=== PATIENT | female | born 1955 | race Caucasian/White ===

== ENCOUNTER 2018-09-20 13:47 | Inpatient (IN) ==
[2018-09-20] MEDS ORDERED: ZOFRAN IV PRN (17:06)
[2018-09-20] MEDS ORDERED: TYLENOL PO PRN (17:06)
[2018-09-20] MEDS ORDERED: SALINE LOCK IV FLUID XX ONE (17:06)
[2018-09-20] MEDS ORDERED: TYLENOL PR PRN (17:09)
[2018-09-20] MEDS ORDERED: DILAUDID IV PRN (17:09)
[2018-09-20] MEDS ORDERED: DULCOLAX PR ONE (17:37)
[2018-09-20] MEDS ORDERED: NS 1,000 ML IV SCH (17:45)
[2018-09-20 17:52] LABS: BASO# 0.03 X1000 (0.0-0.2); BASO% 0.4 % (0.0-0.8); EOS% 2.8 % (0.0-10.0); HEMATOCRIT 37.6 % (37.0-47.0); HEMOGLOBIN 12.2 g/dL (12.0-16.0); IMM GRAN# 0.03 X1000 (0.0-0.04); IMM GRAN% 0.4 % (0.0-0.5); LYMPH# 1.68 X1000 (1.2-3.4); LYMPH% 23.7 % (20.5-51.1); MCH 29.5 PG (27-31); MCHC 32.4 g/dL (33-37); MCV 90.8 FL (81-99); MONO# 0.75 X1000 (0.11-0.59); MONO% 10.6 % (1.7-9.3); MPV 9.7 FL (7.4-10.4); NEUT% 62.1 % (42.2-75.2); PLT 262 X1000 (130-400); RBC 4.14 XMIL (4.2-5.4); RDW 15.5 % (11.5-14.5); WBC 7.09 X1000 (4.8-10.8)
[2018-09-20 18:02] LABS: AGAP 12; BUN 16 mg/dL (8-22); CALCIUM 8.7 mg/dL (8.8-10.2); CHLORIDE 103 mmol/L (98-107); COSMO 282; CREATININE 0.7 mg/dL (0.5-0.9); ESTIMATED GFR > 60; GLUCOSE 96 mg/dL (70-104); POTASSIUM 3.6 mmol/L (3.5-5.1); SODIUM 141 mmol/L (136-145); TCO2 26 mmol/L (25-35); TOTAL BILIRUBIN 0.16 mg/dL (0.20-1.00)
[2018-09-20 18:03] LABS: ALB/GLOB RATIO 1.1; ALBUMIN 3.7 g/dL (3.5-5.0); ALKALINE PHOSPHATASE 94 U/L (32-104); AMYLASE 29 U/L (20-200); GOT 33 U/L (10-30); GPT 17 U/L (10-36); LIPASE 24 U/L (13-60); TOTAL PROTEIN 7.1 g/dL (6.3-8.3)
--- NOTE | 2018-09-20 18:09 | HISTORY AND PHYSICAL ---
CHIEF COMPLAINT: Abdominal pain, bloating, and nausea and vomiting. HISTORY OF PRESENT ILLNESS: The patient is a 62-year-old white female, followed in my medical practice. She is also followed by Dr. Agusto Davila, oncologist, and at [facility] as well. 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 She comes in with a 10-day history of illness of lower abdominal pain. The pain is peristaltic in nature, lasting 3 to 4 minutes with severe pains occurring primarily after eating meals. She has not been able to eat much due to this fact and had nausea and vomiting x2 in the past 4 days. She has not been able to pass gas this morning, but last bowel movement was this morning, and she has normally been going daily, somewhat loose bowel movements at times. She denies fever. MEDICATIONS: Her medications prior to admission are Neurontin 100 mg p.o. every night at bedtime, rare Restoril at night for sleep. ALLERGIES: To morphine. PAST MEDICAL HISTORY: 1. Hypertension diagnosed in 2003, now diet controlled. 2. History of right breast cancer diagnosed May 2017. 3. History of right pleural effusions related to her cancer and had PleurX catheters bilaterally in the past. 4. History of osteoarthritis. 5. 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 6. Mild anemia. 7. History of ruptured appendix with drainage with drain placed. PAST SURGICAL HISTORY: 1. PARISH-BSO on 07/22/2004. 2. Right TKR in April 2015. 3. Left TKR in January 2016. 4. Right appendectomy and drain placement. FAMILY HISTORY: Notable for breast cancer in aunt, mother, 2 sisters. Hypertension in her mother and grandfather. Stroke in her grandfather. No diabetes or MIs in the family. SOCIAL HISTORY: Patient lives in [place]. She is and has 2 sons. 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 Never been a smoker. Does not drink alcohol. REVIEW OF SYSTEMS: Notable for failed medications at [facility] and here at [facility] per Dr. Davila. HER2 positive for FISH. Review of systems otherwise negative except as above. PHYSICAL EXAMINATION: VITAL SIGNS: Weight 150, which is down 3 pounds in the last 3 months. Height 5 feet 7 inches. Blood pressure 136/98, pulse 96, BMI 25. GENERAL: A thin, white female, not particularly ill-appearing. SKIN: Warm and dry. No rashes. HEENT: NC/AT. RALPH. EOMI. Sclerae anicteric. Oropharynx, no redness. Tongue in the midline. NECK: No LA, thyromegaly, JVD or bruits. CARDIOVASCULAR: RRR without murmur. LUNGS: Diminished breath sounds right lung field prominent, left lung clear. BACK: Nontender to palpation. ABDOMEN: Mild distention. Fairly soft. Inactive bowel sounds. No mass or organomegaly. No rebound or guarding. Mild tenderness diffusely across the low abdomen. BREASTS/PELVIC/RECTAL: Deferred. EXTREMITIES: No calf tenderness, cords, or edema. NEUROLOGIC: Cranial nerves 2 through 12 are intact, nonfocal. DIAGNOSTIC DATA: KUB done through the office revealed small bowel obstruction. ASSESSMENT: 1. Small bowel obstruction. 2. Metastatic invasive mammary carcinoma, BRCA gene positive and HER2 positive. 3. Hypertension, diet controlled. 4. History of squamous cell carcinoma, left shoulder, status post removal. 5. Anemia. 6. Peripheral neuropathy, thought related to chemotherapy. 7. History of abdominal surgeries related to ruptured appendix, done at [facility]. PLAN: We will admit the patient, give her IV fluids, and keep her n.p.o. except for medications which will include Neurontin and Restoril. We will give her Dilaudid if needed for pain control. We will hold off on NG tube placement at her request at this point. We will try Dulcolax suppositories and Zofran for nausea. Await CT of abdomen and pelvis without contrast. cc: Kirk Rush MD
--- NOTE | 2018-09-20 18:50 | Diag Imaging Result Doc PS360 ---
CT ABDOMEN/PELVIS W/O CONTRAST - 09/20/2018 INDICATION: sbo/breast ca wth mets COMPARISON: 06/04/2017 FINDINGS: There are some minimal infiltrate in the left lower lobe. There is significant pleural thickening throughout the right lung base. There is significant consolidation of the right lung base as well involving the middle and lower lobes. No significant mediastinal shift. Heart size is normal with no pericardial effusion. The gallbladder is collapsed. Otherwise all abdominal organs are normal. There is significant dilation of much of the small bowel with gas and fluid. His measures up to about 3.5 cm in caliber. There is architectural distortion of several bowel loops in the pelvis. There may be a soft tissue density mass at the right pelvic sidewall, versus just some collapsed bowel loops. The colon is very collapsed. Rectum is grossly normal. Urinary bladder is normal. Uterus is absent. Bones are osteopenic. No acute or suspicious bony lesions. IMPRESSION: 1. Indeterminate density at the right pelvic sidewall which may represent a pelvic mass. This is likely responsible for the high-grade small bowel obstruction. 2. Significant pleural thickening at the right lung base. Significant persistent consolidation of the right lung base. 3. Minimal ill-defined infiltrate in the left lower lobe. This exam was performed using automated exposure control, adjustment of mA or kV according to patient size, and/or use of iterative reconstruction technique Electronically signed by Colby Irby 09/20/2018 6:47 PM
[2018-09-20] MEDS: NEURONTIN PO SCH (22:34)
[2018-09-21] MEDS ORDERED: DULCOLAX PR ONE (08:48)
[2018-09-21] MEDS: NS + KCL 20 MEQ 1,000 ML IV SCH ×2 (11:16→23:12)
--- NOTE | 2018-09-21 18:07 | PROGRESS NOTE ---
DATE: 09/21/2018 SUBJECTIVE: Patient is stable overall. No major nausea. No vomiting. She has still not had a significant bowel movement after 2 Dulcolax suppositories. OBJECTIVE: Vital signs: Afebrile, pulse 79, respirations 14, blood pressure 137/85, O2 saturation on room air 94 to 98%. CV: RRR. Lungs: Diminished breath sounds prominently on the right, minimally decreased at the left lung base. Abdomen: Soft. Hypoactive bowel sounds. Mild tenderness diffusely across the low abdomen. No mass appreciated on exam. Extremities: No calf tenderness, cords, or edema. Neurologic: Cranial nerves 2-12 are intact. Nonfocal. LABORATORY: White count 7.09, hemoglobin 12.2, platelets 262,000. CMP shows normal labs to include potassium of 3.6, BUN 16, creatinine 0.7, calcium 8.7, total bilirubin 0.16, AST 33, ALT 17, alkaline phosphatase 94, albumin 3.7, amylase 29, lipase 24. CT abdomen and pelvis without contrast reveals indeterminate density in the right pelvic sidewall, possibly representing a pelvic mass. This is likely responsible for the high-grade SBO. Significant pleural thickening at the right lung base with persistent consolidation of the right lung base. Minimal ill-defined infiltrate left lower lobe. ASSESSMENT: 1. High-grade small bowel obstruction. 2. Right pelvic mass with history of appendiceal abscess in the past year or so, treated with CT- guided aspiration and drain placement. 3. Metastatic right breast cancer with chronic malignant right pleural effusion. PLAN: We have asked Dr. Regis Ortiz to see the patient in consultation from a surgical standpoint. He has placed her port in the past and the PleurX catheters. Continue IV fluids. cc: Kirk Rush MD
[2018-09-21] MEDS: NEURONTIN PO SCH (20:04)
--- NOTE | 2018-09-21 21:31 | GENERAL SURGERY CONSULTATION ---
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 She is BRCA positive. She has been undergoing a trial of palliative chemotherapy at [facility] for which she has recently been stopped, and Dr. Davila has plans to initiate another agent. She has had some intermittent colicky abdominal discomfort last month every couple hours during the day, but these were transient and self-limiting. She has had 2 episodes of emesis she says over the last month, but according to Dr. Loredo's note, this has been progressive the last 4 days. Flatus has been marginal. She has had daily bowel movements she says that are nonbloody, relatively formed. She was diagnosed with perforated appendix that was treated with percutaneous drainage at [facility] with resolution of her symptoms. 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 She has had recurrent effusions, squamous cell carcinoma of the skin, and anemia. SURGICAL HISTORY: She has had percutaneous drainage of periappendiceal abscess, total abdominal hysterectomy with bilateral salpingo-oophorectomy in 2004, bilateral total knee replacements. FAMILY HISTORY: Significant for breast carcinoma and BRCA mutation. SOCIAL HISTORY: She is , lives in [place]. No tobacco or alcohol. REVIEW OF SYSTEMS: Ten-point negative. PHYSICAL EXAMINATION: Vital signs: She is afebrile, pulse 79, blood pressure 137/81, oxygen saturation 96% on room air. General: She is alert. HEENT: There is no scleral icterus, no supra or infraclavicular masses. Cardiovascular: Normal rate. Pulmonary: No increased work of breathing. Breast Exam: Shows stable inflammatory changes of the right breast with no obvious mass, no ulcers or skin changes. Abdomen: Soft, nontender, nondistended. Integument: Warm and dry. Psychiatric: Appropriate affect. Neurologic: No gross deficits. Peripheral vascular: Does have lower extremity edema. Lymphatic: There is no cervical, axillary, or inguinal adenopathy palpable on exam today. LABORATORY DATA: White count was normal yesterday at 7, hematocrit 37, creatinine 0.7, potassium 3.6, amylase and lipase normal. IMAGING: I reviewed her CT scan that was obtained yesterday that showed an indeterminate density in the right pelvic sidewall with possible transition point at this juncture, pleural thickening with persistent right lung consolidation, infiltrate in the left lower lobe. ASSESSMENT AND PLAN: This is an 62-year-old female with metastatic inflammatory breast carcinoma and now symptoms consistent with a partial bowel obstruction. I reviewed her scan. It is possible that this is neoplastic in etiology, most likely related to her breast carcinoma, which unfortunately has progressed based off of her experimental treatment. Her exam is benign. She has had no further emesis over the last 2 days with bowel rest. It is also possible that this is related to her recent treatment of perforated appendicitis. It would be reasonable to give her clear liquids. I will order a small bowel follow-through tomorrow to determine the degree of obstruction, and we will go from there. I do think she would be high risk for an operation and does not have an indication currently if her obstruction is resolved. I have ordered her clear liquids, and I have ordered a small bowel follow through for tomorrow. cc: MD Kirk Almanza MD
[2018-09-21] MEDS: RESTORIL PO PRN (23:12)
[2018-09-22] MEDS: NS + KCL 20 MEQ 1,000 ML IV SCH (11:59)
--- NOTE | 2018-09-22 12:38 | Diag Imaging Result Doc PS360 ---
EXAM: SMALL BOWEL SERIES ONLY 09/21/2018 HISTORY: sbo TECHNIQUE: 12 images, two minutes 13 seconds fluoroscopy time, 2364.5 cGy. COMMENT: There is some contrast in the ascending colon by four hours after the beginning of the study. There is active peristalsis present. The majority of the jejunum is normal in caliber with normal mucosal fold thickness. The distal jejunum and ileum are distended. There is a very irregular luminal contour in the distal ileum to the cecum. The cecum is also somewhat distorted in appearance. Correlating with the recent CT of the abdomen of 09/20/2018, which was unfortunately performed without intravenous contrast, this correlates with the location of what appears to be a mass on the right side of the pelvis adjacent to the ileocecal valve. IMPRESSION: Partial small bowel obstruction due to metastatic disease to the bowel itself or possibly to the adjacent mesentery with desmoplastic fibrotic adhesions. Electronically signed by John Vargas 09/22/2018 12:36 PM
--- NOTE | 2018-09-22 13:06 | PROGRESS NOTE ---
DATE: 09/22/2018 SUBJECTIVE: Patient had 2 bowel movements, some loose, some fairly solid by her report. She underwent the small bowel follow-through this morning. OBJECTIVE: Afebrile, pulse 80, respirations 20, blood pressure 148/83, and O2 saturation room air 98%.Lungs: Decreased breath sounds right lung. Minimal decreased breath sounds left lung base. CV: RRR. No murmur. Abdomen: Soft. Hypoactive bowel sounds. Nontender. Extremities: No calf tenderness, cords or edema. Neurologic: Cranial nerves are intact. No focal deficits. Small-bowel follow-through shows partial SBO due to metastatic disease to the bowel itself or possibly to the adjacent mesentery with desmoplastic fibrotic adhesions. ASSESSMENT: 1. Partial SBO to right pelvic metastasis with adhesions. 2. Metastatic right breast cancer with chronic malignant pleural effusion on the right. PLAN: As she has had some bowel movements, it is encouraging overall. We will follow with Dr. Ortiz and see what he recommends later on today. Continue IV fluids. Walk patient in the snider as she is doing. Continue home medications. cc: Kirk Rush MD
[2018-09-22] MEDS: NEURONTIN PO SCH (21:49)
--- NOTE | 2018-09-22 22:49 | GENERAL SURGERY PROGRESS NOTE ---
DATE: 09/22/2018 SUBJECTIVE: She had a couple of bowel movements today. She had a small bowel follow-through that showed passage of contrast to apparent stricture in the distal small bowel, but into the colon. No fevers. No tachycardia. OBJECTIVE: General: She is alert. Cardiovascular: Normal rate. Pulmonary: No increased work of breathing. Abdomen: Soft, nontender, nondistended. Integument: Warm and dry. LABS: No new labs yet this morning. ASSESSMENT AND PLAN: A 61-year-old female with partial obstruction related to a right lower quadrant process. The possibility that this is a metastatic lesion here versus residual inflammatory changes from her recent perforated appendicitis. Given the partial nature of this and her already established metastatic carcinoma, I have recommended continued observation. We did discuss possibility of a palliative diversion were she to develop complete obstruction. We discussed the possibility that this could be cancer that is causing this, in which case, it would probably worsen over the next several weeks. Otherwise, we will give her clear liquids, see how she tolerates this and gradually advance her to full liquid or soft diet over the next 24 to 48 hours. We will continue to follow along. cc: MD Kirk Almanza MD
[2018-09-23] MEDS: NS + KCL 20 MEQ 1,000 ML IV SCH ×2 (01:37→16:11)
[2018-09-23] MEDS: NEURONTIN PO SCH ×2 (01:38→21:52)
--- NOTE | 2018-09-23 11:00 | PROGRESS NOTE ---
DATE: 09/23/2018 SUBJECTIVE: The patient with some nausea during the evening and night last night, some rolling of her abdominal contents. No bowel movements since yesterday morning. No flatus. OBJECTIVE: Afebrile, pulse 85, respirations 20, blood pressure 141/94 and O2 saturation room air 94%.CV: RRR without murmur. Lungs: Decreased breath sounds 3/[address] right lung field, very minimal decreased breath sounds left lung base. Otherwise good air movement left lung. Abdomen: Soft. Mild distention. Hyperactive bowel sounds. No point tenderness. Extremities: No calf tenderness, cords or edema. ASSESSMENT: 1. Partial SBO with right pelvic process, rule out mets versus adhesions from prior ruptured appendix. 2. Metastatic right breast cancer with malignant right pleural effusion. PLAN: For now, continue to try some clear liquids. She has IV fluids and Zofran as needed. We will add Lovenox for prevention of DVT. She has been ambulating very well. Continue to monitor. Discussed with Dr. Ortiz this morning and diverting colostomy, and potential in the long run. cc: Kirk Rush MD
[2018-09-23] MEDS: LOVENOX SUBQ SCH (13:15)
[2018-09-23] MEDS ORDERED: DULCOLAX PR ONE (15:45)
--- NOTE | 2018-09-23 21:39 | GENERAL SURGERY PROGRESS NOTE ---
DATE: 09/23/2018 SUBJECTIVE: Still having some nausea intermittently. No fevers. No tachycardia. Abdomen is soft, nontender, nondistended. Integument is warm and dry. LABORATORY: No new labs this morning. ASSESSMENT AND PLAN: 62-year-old female with partial obstruction related to right lower quadrant process, unclear this is inflammatory in etiology possible malignant. Will continue clear liquids. Will order Dulcolax suppository. Will continue this. Start her on some MiraLAX from above and if no improvement over the weekend she may need a diverting ostomy versus resection on Wednesday or Wednesday. cc: MD Kirk Almanza MD
[2018-09-23] MEDS: RESTORIL PO PRN (21:53)
[2018-09-24] MEDS: NS + KCL 20 MEQ 1,000 ML IV SCH ×2 (04:44→21:37)
[2018-09-24] MEDS: MIRALAX PO SCH (08:32)
[2018-09-24] MEDS: LOVENOX SUBQ SCH (08:36)
--- NOTE | 2018-09-24 12:18 | PROGRESS NOTE ---
DATE: 09/24/2018 SUBJECTIVE: The patient says she has a little soreness in her abdomen but she has had a bowel movement. She has been up walking. She is feeling better. Not really complaining of any pain. OBJECTIVE: Vital signs: Blood pressure is 128/80, respirations 16, pulse 74, temperature 97.9 degrees. HEENT: She is normocephalic. EOMs intact.PERRLA. Throat clear. Lungs: Clear to auscultation and percussion without rhonchi, rales, or wheezes. Heart: Regular rate and rhythm without murmurs, gallops, friction rubs. Abdomen: Soft with some active bowel sounds. No organomegaly or tenderness at this point. Neurological: Intact grossly. ASSESSMENT: 1. Partial small-bowel obstruction. 2. History of breast cancer. PLAN: Continue to support and watch. The patient does seem to be making improvement. cc: MD Kirk Gates Jr, MD MTDMarissa
--- NOTE | 2018-09-24 21:22 | GENERAL SURGERY PROGRESS NOTE ---
DATE: 09/24/2018 SUBJECTIVE: She is sitting up. Feels okay. She is afebrile. She is tolerating her liquids well. Her bowels have moved a little. OBJECTIVE: Vital Signs: Heart rate 85, blood pressure 137/93. PLAN: The plan is to give her full liquid, so we will advance her diet somewhat to see how she progresses. cc: MD Kirk Langston MD
[2018-09-24] MEDS: NEURONTIN PO SCH (21:35)
[2018-09-24] MEDS: RESTORIL PO PRN (21:35)
[2018-09-25] MEDS: LOVENOX SUBQ SCH (09:18)
[2018-09-25] MEDS: MIRALAX PO SCH (09:18)
--- NOTE | 2018-09-25 09:51 | GENERAL SURGERY PROGRESS NOTE ---
DATE: 09/25/2018 SUBJECTIVE: She is afebrile. She tolerated full liquids yesterday. She has been up and about. Dr. Ortiz will be back tomorrow and will determine the need for operative intervention. cc: MD Kirk Langston MD
--- NOTE | 2018-09-25 13:22 | PROGRESS NOTE ---
DATE: 09/25/2018 SUBJECTIVE: The patient is not having any abdominal pain to speak of. She is having some bowel movements, but they are mostly diarrheal. Surgery is seeing her today as well. OBJECTIVE: Vital signs: Blood pressure is 130/95, respirations 16, pulse 87, temperature 97.5 degrees Fahrenheit. HEENT: She is normocephalic. EOMS intact. PERRLA. Throat clear. Lungs: Clear to auscultation and percussion without rhonchi, rales, or wheezes. Heart: Regular rate and rhythm without murmurs, gallops or friction rubs. Abdomen: Soft with slight distention. She has active bowel sounds but not hyperactive bowel sounds. Neurological exam: Cranial nerves 2 through 12 intact grossly. Sensory and motor intact. Reflexes 1+ all. There has been no lab work since 09/20/2018. ASSESSMENT: 1. Small-bowel obstruction, partial. 2. Breast cancer. PLAN: Continue support. Surgery will have to decide whether they want to operate or not. cc: MD Kirk Gates Jr, MD
--- NOTE | 2018-09-25 13:23 | Diag Imaging Result Doc PS360 ---
ABDOMEN FLAT/UPRIGHT - 09/25/2018 INDICATION: sbo COMPARISON: 09/22/2018 FINDINGS: There is a persistent high-grade small bowel obstruction. There has been no change in the configuration of the barium since the prior exam from 09/22/2018. IMPRESSION: High-grade small bowel obstruction. No change from prior. Electronically signed by Colby Irby 09/25/2018 1:21 PM
[2018-09-25] MEDS: NS + KCL 20 MEQ 1,000 ML IV SCH (18:32)
[2018-09-25] MEDS: NEURONTIN PO SCH (21:35)
[2018-09-25] MEDS: RESTORIL PO PRN (21:35)
[2018-09-26] MEDS: NS + KCL 20 MEQ 1,000 ML IV SCH ×2 (03:44→08:13)
[2018-09-26 05:55] LABS: BASO# 0.03 X1000 (0.0-0.2); BASO% 0.6 % (0.0-0.8); EOS# 0.25 X1000 (0.0-0.7); EOS% 5.1 % (0.0-10.0); HEMOGLOBIN 12.2 g/dL (12.0-16.0); IMM GRAN# 0.02 X1000 (0.0-0.04); IMM GRAN% 0.4 % (0.0-0.5); LYMPH# 1.48 X1000 (1.2-3.4); LYMPH% 30.4 % (20.5-51.1); MCH 29.1 PG (27-31); MCHC 32.1 g/dL (33-37); MCV 90.7 FL (81-99); MONO# 0.67 X1000 (0.11-0.59); MONO% 13.8 % (1.7-9.3); MPV 9.5 FL (7.4-10.4); NEUT# 2.42 X1000 (1.4-6.5); NEUT% 49.7 % (42.2-75.2); PLT 248 X1000 (130-400); RBC 4.19 XMIL (4.2-5.4); RDW 15.8 % (11.5-14.5); WBC 4.87 X1000 (4.8-10.8)
[2018-09-26 06:24] LABS: AGAP 6; BUN 5 mg/dL (8-22); CALCIUM 9.3 mg/dL (8.8-10.2); CHLORIDE 104 mmol/L (98-107); COSMO 274; CREATININE 0.6 mg/dL (0.5-0.9); ESTIMATED GFR > 60; GLUCOSE 86 mg/dL (70-104); POTASSIUM 3.8 mmol/L (3.5-5.1); SODIUM 139 mmol/L (136-145); TCO2 29 mmol/L (25-35)
[2018-09-26] MEDS: MIRALAX PO SCH (08:13)
[2018-09-26] MEDS: LOVENOX SUBQ SCH (08:13)
--- NOTE | 2018-09-26 08:41 | PROGRESS NOTE ---
DATE: 09/26/2018 SUBJECTIVE: Patient is stable. She is having some loose bowel movements after MiraLAX, no major nausea. OBJECTIVE: CV: RRR without murmur. Lungs: Decreased breath sounds moderate on the right lungs. CTA on the left and at the upper right lung as well. Abdomen: Soft. Active bowel sounds. Nondistended, nontender. Extremities: No calf tenderness, cords or edema. Neurologic: Cranial nerves are intact. She moves all extremities well. Alert and oriented x3. LABORATORY: CBC normal. BMP normal. Yesterday, flat and upright of the abdomen revealed high- grade small bowel obstruction. No change from prior. ASSESSMENT: 1. SBO. 2. Metastatic right breast cancer with malignant right pleural effusion. PLAN: Patient on full liquids and IV fluids. She remains on prophylactic doses of Lovenox subcutaneous. She is ambulating well. Dr. Ortiz will make a determination on whether to proceed with surgery versus continued conservative management. cc: Kirk Rush MD
[2018-09-26 15:55] VITALS: BP 128/93
--- NOTE | 2018-09-26 16:47 | GENERAL SURGERY PROGRESS NOTE ---
DATE: 09/26/2018 SUBJECTIVE: Doing very well. Tolerating full liquids. Bowels are functioning. No pain. No nausea. No fevers. No tachycardia. White count [*] OBJECTIVE: General: She is alert. Cardiovascular: Normal rate. Abdomen: Soft. LABORATORY DATA: I reviewed her labs. ASSESSMENT AND PLAN: A 61-year-old female with partial obstruction related to a right lower quadrant processes. It is either malignant in nature or related to a previous perforated appendicitis. I do think surgically she will continue on full liquid. No plans for intervention at this juncture. If she were to re-develop obstructive symptoms, she would need a diverting colostomy, most likely ileostomy depending on location of obstruction. I have discussed this with her in detail. She wants to go home. I think that is reasonable. I will follow with her in the next week or two in my office. Otherwise, continue on MiraLAX daily going forward. cc: MD Kirk Almanza MD
--- NOTE | 2018-09-26 17:28 | DISCHARGE SUMMARY ---
ADMISSION DATE: 09/20/2018 DISCHARGE DATE: 09/26/2018 DIAGNOSES: 1. Small bowel obstruction, improved with conservative measures. 2. Metastatic breast cancer with malignant right pleural effusion, chronic. 3. Peripheral neuropathy. 4. Chronic insomnia. PROCEDURES: 1. CT scan of abdomen and pelvis without contrast done on 09/20/2018 revealing indeterminate density of right pelvic sidewall, possibly representing pelvic mass, likely responsible for the high-grade small bowel obstruction; significant pleural thickening at the right lung base with persistent consolidation of the right lung base; minimal ill-defined infiltrate in the left lower lobe. 2. Small bowel series done 09/21/2018 revealing partial small bowel obstruction due to metastatic disease to the bowel itself or possibly to the adjacent mesentery with desmoplastic fibrotic adhesions. 3. Flat and upright of the abdomen done on 09/25/2018 revealing persistent high-grade small bowel obstruction. CONSULTANTS: Dr. Regis Ortiz, general surgery. REASON FOR ADMISSION AND HOSPITAL COURSE: The patient is a 62-year-old white female, followed in my medical practice. She is also followed by Dr. Agusto Davila and at [facility] as well. She has BRCA gene positive right breast cancer metastatic. She suffers from chronic malignant effusion on the right lung. She came in with a 10-day history of pain in the lower abdomen diffusely, and CT abdomen and pelvis revealed small bowel obstruction. She was admitted, kept at bowel rest, given IV fluids and Zofran as needed for nausea and vomiting, pain control with Dilaudid as required. Fortunately, she did not require a lot of pain medication. She had been noted in the past year to have a perforated appendix on the right with a drain placed by percutaneous approach by CT scan. She did not have surgery for that. The CT showed abnormality in the right lower quadrant, possibly mass. Dr. Ortiz saw the patient and recommended ongoing conservative measures, and she was treated initially with Dulcolax suppositories and then some MiraLAX and then she began to stool, have 2 to 3 bowel movements per day. These were loose. She had no major nausea. No abdominal cramping. X-rays continue to show some degree of small bowel obstruction, but she was passing gas and ambulating and eating full liquids without great difficulty, and as she was stooling with 3 loose bowel movements per day, it was felt that she could be discharged home. Dr. Ortiz has discussed that she might require colostomy placement if symptoms recur. She is doing well enough at this time, she will be discharged home on p.r.n. Zofran 4 mg p.o. every 4 to 6 hours p.r.n. nausea or vomiting, Neurontin 100 mg p.o. every night at bedtime, Restoril 30 mg p.o. every night at bedtime. The patient also will eat a bland soft diet. She will follow up in my office in [address] Ortiz if worsens in any way or she knows to come back here should she worsen significantly. She will also will be on MiraLAX 17 grams in 8 ounces of water daily. cc: Kirk Rush MD
== END 2018-09-26 17:16 | disposition home or self-care (01) | DRG 389 ==
LOC: DIRADM 13:47 → 4N 15:25
PROVIDERS: ADMIT Family Medicine; ATTEND Family Medicine
CPT/HCPCS: 74019; 74020; 74176; 74250; 80048; 80053; 82150; 83690; 85025; A9270; J1650; J3480; J7030

== ENCOUNTER 2018-10-08 05:50 | Inpatient (IN) ==
[2018-10-08] MEDS ORDERED: DILAUDID IV ONE ×2 (06:10→10:07)
[2018-10-08] MEDS ORDERED: NS 1,000 ML IV ONE (06:10)
[2018-10-08] MEDS ORDERED: ZOFRAN IV ONE (06:10)
--- NOTE | 2018-10-08 06:15 | PROVIDER DOCUMENTATION ---
HPI-Abdominal Pain/GI Problem - General Chief Complaint: Abdominal Pain Stated Complaint: ABD PAIN Time Seen by Provider: 10/08/18 06:09 Source: patient, family Allergies/Adverse Reactions: Patient Allergies Allergy/AdvReac Type Severity Reaction Status Date / Time morphine Allergy Intermediate NAUSEA/VOMI Verified 10/08/18 07:57 TING Home Medications: Home Medication List Medication Instructions Recorded Confirmed Last Taken Type Temazepam [Restoril] 30 mg PO QHS PRN 09/20/18 10/08/18 10/03/18 History Gabapentin [Neurontin] 100 mg PO QHS cap 09/26/18 10/08/18 09/24/18 Rx Ondansetron HCl [Zofran] 4 mg PO Q4-6H PRN PRN #12 tab 09/26/18 10/08/18 10/07/18 Rx Polyethylene Glycol 3350 [Miralax] 17 gm PO DAILY powder, packet 09/26/18 10/08/18 10/07/18 Rx - History of Present Illness-ABD Nature of Presenting Problems: patient reports a history of breast Ca and recently diagnosed partial obstructi on. She reports her last bm yesterday. The patient reports diffuse, sharp abd pain and nausea started earlier this morning. She denies cp, fever or any vomiting. Review of Systems - Adult - REVIEW OF SYSTEMS - ADULT Constitutional: reports: see HPI Eyes: reports: no symptoms reported Ears, Nose, Mouth & Throat: reports: no symptoms reported Cardiovascular: reports: no symptoms reported Respiratory: reports: no symptoms reported Gastrointestinal: reports: see HPI Genitourinary: reports: no symptoms reported Musculoskeletal: reports: no symptoms reported Integumentary: reports: no symptoms reported Neurological: reports: no symptoms reported Psychiatric: reports: no symptoms reported Endocrine: reports: no symptoms reported Hematologic/Lymphatic: reports: no symptoms reported Allergic/Immunologic: reports: no symptoms reported All Other Systems: Reviewed and Negative Past History - Adult - PAST MEDICAL HISTORY-ADULT Review of Records: reports: Old Records Reviewed Physical Exam-General - PHYSICAL EXAM-ADULT Initial Vital Signs Reviewed: Yes - CONSTITUTIONAL General Appearance: mild distress - EYES Eyes: PERRL/EOMI, pink conjunctivae - HEAD, EARS, NOSE, MOUTH & THROAT HENMT: normocephalic/atraumatic, moist mucous membranes - NECK Neck: non-tender, full range of motion, normal inspection - RESPIRATORY Respiratory: lungs clear, normal breath sounds, no pleuratic chest pain, no respiratory distress, no accessory muscle use - CARDIOVASCULAR Cardiovascular: normal peripheral pulses, regular rate, rhythm, no edema - GASTROINTESTINAL (ABDOMEN) Abdominal Exam: distended, tenderness - MUSCULOSKELETAL Back Exam: normal inspection, no CVA tenderness, no vertebral tenderness Extremity: normal range of motion, non-tender, normal gait, normal inspection - SKIN Integumentary: normal color, normal turgor, warm/dry - NEUROLOGIC Neurologic: 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 as tested, grossly normal, no motor/sensory deficits, abnormal cerebellar tests, abnormal aircraft tool maker II-XII - PSYCHIATRIC Psych/Mental Status: normal mood/affect, normal thought content, normal thought process, oriented x 3 Progress - PLAN OF CARE/RESULTS Progress/Plan/Lab Results: Vital Signs - 8 hr 10/08/18 05:57 Temperature 97.8 F Pulse Rate 83 Respiratory Rate 20 Blood Pressure 138/86 O2 Sat by Pulse Oximetry 94 L Orders Category Date Time Status CT ABD/PELVIS W/IV CONT ONLY [CT] Stat Exams 10/08/18 06:10 Ordered CBC WITH ELECTRONIC DIFF [HEME] Stat Lab 10/08/18 06:09 Uncollected COMPREHENSIVE METABOLIC PANEL [CHEM] Stat Lab 10/08/18 06:09 Uncollected LACTATE, PLASMA [CHEM] Stat Lab 10/08/18 06:09 Uncollected LIPASE [CHEM] Stat Lab 10/08/18 06:09 Uncollected PROTIME WITH INR [COAG] Stat Lab 10/08/18 06:09 Uncollected PTT [COAG] Stat Lab 10/08/18 06:09 Uncollected URINALYSIS W/POSS RFLX CULT [URINALYSIS] Stat Lab 10/08/18 06:09 Uncollected 0.9% Sodium Chloride Inj [Ns] 1,000 ml Med 10/08/18 06:10 Active IV 999 mls/hr Hydromorphone [Dilaudid] Med 10/08/18 06:10 Discontinued 1 mg IV NOW ONE Ondansetron [Zofran] Med 10/08/18 06:10 Once 4 mg IV NOW ONE Result Diagrams: 10/08/18 06:45 10/08/18 06:45 - REASSESSMENT Reassessment #1 Time Reassessed: 08:55 Status: unchanged (Ct reveals "worsening" SBO w/ R pelvic mass (noted on prior scan). NG placed by me following serial unsuccessful attempts by nursing (slight epistaxis already present): position confirmed radiographically. discussed w/ Dr. Santiago (covering Dr. Rush) who will admit.) - CHANGE OF SHIFT REPORT (ED Provider) 1 Report Given and Care Transferred to:: Dr. Barros Items Pending: Labs, CT/MRI Results Departure - Departure Date of Disposition Decision: 10/08/18 Time of Disposition Decision: 08:56 DIAGNOSIS: Small bowel obstruction, Pelvic mass Disposition: ADMITTED INPATIENT 09 Certified Medical Emergency: Emergent Condition: Stable Referrals and Follow-Ups: Kirk Rush MD [Primary Care Provider] - - Critical Care Note This patient required my direct & personal management of CC.: No Attestation - Physician/ VLADIMIR Attestation The physician spent face to face time with patient:: Yes Advanced Practice Provider documentation review:: Supervising physician onsite and consulted in the evaluation and care of this patient. The physician did have a face to face encounter with the patient.
--- NOTE | 2018-10-08 07:27 | Diag Imaging Result Doc PS360 ---
EXAM: CT ABD/PELVIS W/IV CONT ONLY HISTORY: abd pain TECHNIQUE: CT abdomen and pelvis with intravenous contrast. COMPARISON: 09/20/2018 FINDINGS: Right pleural effusion with pleural thickening and consolidation involving the right middle and lower lobes has an appearance similar to the prior study. There is at least a small pericardial effusion is well. The gallbladder is distended. No calcified stones or adjacent inflammation. Normal liver, spleen, pancreas, adrenal glands, and kidneys. No hydronephrosis. No aortic aneurysm. There continue to the markedly dilated small bowel loops throughout the abdomen and pelvis. These measure up to 4.5 cm in diameter on the current exam. The point of obstruction appears to be in the right pelvis where there appears to be an underlying irregular mass. This appearance is similar to the prior study. The urinary bladder is only mildly distended. The uterus has been removed. IMPRESSION: Worsening small bowel obstruction apparently due to a right pelvic mass. This exam was performed using automated exposure control, adjustment of mA or kV according to patient size, and/or use of iterative reconstruction technique. Electronically signed by Rik Colon 10/08/2018 7:25 AM
[2018-10-08 07:39] LABS: URINE SOURCE CLEAN CATCH
[2018-10-08 07:41] LABS: BASO# 0.02 X1000 (0.0-0.2); BASO% 0.3 % (0.0-0.8); EOS# 0.11 X1000 (0.0-0.7); EOS% 1.6 % (0.0-10.0); HEMATOCRIT 38.1 % (37.0-47.0); HEMOGLOBIN 12.4 g/dL (12.0-16.0); IMM GRAN# 0.03 X1000 (0.0-0.04); IMM GRAN% 0.4 % (0.0-0.5); LYMPH# 1.32 X1000 (1.2-3.4); LYMPH% 18.8 % (20.5-51.1); MCH 29.1 PG (27-31); MCHC 32.5 g/dL (33-37); MCV 89.4 FL (81-99); MONO# 0.45 X1000 (0.11-0.59); MONO% 6.4 % (1.7-9.3); NEUT% 72.5 % (42.2-75.2); PLT 257 X1000 (130-400); RBC 4.26 XMIL (4.2-5.4); RDW 15.6 % (11.5-14.5); WBC 7.03 X1000 (4.8-10.8)
[2018-10-08 07:43] LABS: INR 0.93; PROTIME 13.2 Seconds (11.0-16.0)
[2018-10-08 07:44] LABS: PTT 29.8 Seconds (22.3-41.8)
[2018-10-08 07:46] LABS: BILIRUBIN URINE NEGATIVE (NEGATIVE); BLOOD URINE NEGATIVE (NEGATIVE); CLARITY CLEAR (CLEAR); COLOR YELLOW; GLUCOSE URINE NEGATIVE (NEGATIVE); KETONE URINE 40 mg/dL (NEGATIVE); LEUKOCYTES URINE TRACE (NEGATIVE); NITRITE URINE NEGATIVE (NEGATIVE); PH URINE 5.5; PROTEIN URINE NEGATIVE (NEGATIVE); UROBILINOGEN URINE 0.2 EU/dL (0.2-1.0)
[2018-10-08 07:47] LABS: URINE BACTERIA NEGATIVE /HFP; URINE CAST NONE SEEN /LPF; URINE CRYSTAL NONE SEEN /HPF; URINE EPITHELIAL CELLS <10 /HPF (<10); URINE RBC <10 /HPF (<10); URINE SMALL ROUND CELLS TRANSITIONAL PRESENT; URINE WBC <10 /HPF (<10); URINE YEAST NONE SEEN /HPF
[2018-10-08 08:04] LABS: AGAP 15; ALB/GLOB RATIO 0.9; ALBUMIN 3.5 g/dL (3.5-5.0); ALKALINE PHOSPHATASE 107 U/L (32-104); BUN 13 mg/dL (8-22); CHLORIDE 96 mmol/L (98-107); COSMO 266; CREATININE 0.7 mg/dL (0.5-0.9); ESTIMATED GFR > 60; GLUCOSE 83 mg/dL (70-104); GOT 51 U/L (10-30); GPT 22 U/L (10-36); LIPASE 13 U/L (13-60); POTASSIUM 4.4 mmol/L (3.5-5.1); SODIUM 133 mmol/L (136-145); TCO2 22 mmol/L (25-35); TOTAL BILIRUBIN 0.36 mg/dL (0.20-1.00); TOTAL PROTEIN 7.6 g/dL (6.3-8.3)
--- NOTE | 2018-10-08 08:14 | Diag Imaging Result Doc PS360 ---
EXAM: CHEST-1 VIEW HISTORY: ngt placement confirmation TECHNIQUE: Chest single view COMPARISON: 08-16-17 FINDINGS: Nasogastric tube is coiled in the stomach. Right pleural effusion vs pleural thickening similar to the prior exam. Likely scarring in the lower right lung. IMPRESSION: NG tube in the stomach. Electronically signed by Rik Colon 10/08/2018 8:12 AM
[2018-10-08] MEDS ORDERED: ZOFRAN 16 MG in NS 25 ML IV ONE (12:23)
[2018-10-08] MEDS: NS 1,000 ML IV SCH ×2 (13:30→23:20)
[2018-10-08] MEDS: LOVENOX SUBQ SCH (13:33)
[2018-10-08] MEDS: SODIUM CHLORIDE 0.9% INJ SCH (13:33)
[2018-10-08] MEDS: PEPCID IV SCH ×2 (13:34→23:20)
[2018-10-08] MEDS: DILAUDID IV PRN (14:33)
[2018-10-08 14:45] LABS: URINE SOURCE CATH
[2018-10-08 14:54] LABS: UR EPITHELIAL CELLS <10 /HPF (<10); URINE BACTERIA NEGATIVE /HPF; URINE RBC <10 /HPF (<10); URINE WBC <10 /HPF (<10)
[2018-10-08 15:04] LABS: BILIRUBIN URINE NEGATIVE (NEGATIVE); BLOOD URINE NEGATIVE (NEGATIVE); COLOR YELLOW; GLUCOSE URINE NEGATIVE (NEGATIVE); KETONE URINE 80 mg/dL (NEGATIVE); LEUKOCYTES URINE NEGATIVE (NEGATIVE); NITRITE URINE NEGATIVE (NEGATIVE); PH URINE 5.5; PROTEIN URINE NEGATIVE (NEGATIVE); SP GRAVITY URINE 1.045; TURBIDITY URINE CLEAR (CLEAR); UROBILINOGEN URINE NORMAL (NORMAL)
--- NOTE | 2018-10-08 17:48 | HISTORY AND PHYSICAL ---
CHIEF COMPLAINT: Persistent nausea, vomiting, obstipation since yesterday. HISTORY OF PRESENT ILLNESS: She is a 62-year-old, white female, very pleasant, recently discharged from small bowel obstruction due to right pelvic mass. Spontaneously got better, doing very well until yesterday. Started having above symptoms. As a result, family brought back to the emergency room from [place] and further workup revealed bowel obstruction. The patient has NG tube placed. She is not passing any gas since yesterday. Interval history was reviewed with the family and basically admitted to the hospital. Small bowel obstruction due to right pelvic mass. PAST MEDICAL HISTORY: 1. Metastatic breast cancer from the right side, ER positive, CO positive, HER-2 positive. The breast cancer was diagnosed on May 2017. 2. BRCA gene mutation was positive. 3. Right-sided pleural effusion. 4. History of bilateral knee osteoarthritis. 5. Right pelvic mass etiology to be determined. 6. History of squamous cell carcinoma of the skin on the left shoulder removed. 7. Total abdominal hysterectomy with bilateral salpingo-oophorectomy 07/22/2014. 8. Bilateral knee replacement in 2015. 9. History of right pelvic drainage 4 months ago in [place]. Port on the right side of the chest. 10. History of PleurX catheter for the malignant pleural effusions. ALLERGIES: To morphine. MEDICATIONS: Restoril 30 mg at bedtime, MiraLAX 17 g daily. Neurontin 100 daily, Zofran 4 mg as needed. Lynparza 150 daily, hydrocortisone cream topically as needed. 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 , lives in [place], has 2 boys. No smoking. No alcohol. FAMILY HISTORY: Her mother had breast cancer. Father of [place]. Second- degree relatives had significant breast cancers. REVIEW OF SYSTEMS: HEENT: No headache. No vision problem. No earache. No sore throat. Neck: No neck pain. No goiter. Cardiopulmonary: No chest pain, shortness of breath, PND, orthopnea. GI: Nausea, abdominal distention, obstipation. No bleeding per rectum. : No history of hesitancy, frequency, dysuria and no swelling of legs. No history of joint pains. No focal symptoms or weakness. PHYSICAL EXAMINATION: VITAL SIGNS: Temperature is 97.4, pulse 76, blood pressure is 147/86, 5 feet 7 inches, 120 pounds. HEENT: Atraumatic, normocephalic. Pupils equal, reactive to light. TMs are normal. Nose and throat within normal limits. NECK: Supple. No lymphadenopathy. JVD is normal. CHEST: Port on the right side. Decreased breath sounds on the right side. HEART: Sounds are regular. No murmur. ABDOMEN: Belly is soft, not very distended. No masses palpable. EXTREMITIES: No peripheral edema. Bilateral knee scars present. NEUROLOGIC: No obvious deficits. LABS: CBC: White cell count 7, hematocrit 38, platelet 257. PT 13, INR 0.9. Sodium 133, potassium 4.4, chloride 96, BUN 13, creatinine 0.7. Liver function test was normal. Urinalysis is clear. Chest x-ray: NG tube was coiled in the stomach. Right pleural effusion with pleural thickening similar. Left lung is clear. CT scan of the abdomen and pelvis worsening of small bowel obstruction apparently due to right pelvic mass. This is 4.5 cm in diameter. ASSESSMENT AND PLAN: 1. A 62-year-old, white female, with metastatic breast cancer, BRCA gene positive with triple positive breast cancer on oral chemotherapy. Came in with bowel obstruction, recurrent. Plan is NG tube with low wall suction. IV fluids. Dulcolax. 2. Deep vein thrombosis, gastrointestinal prophylaxis with Lovenox and Pepcid. 3. Surgical consult drilling field professional for Dr. Ortiz. Discussed with Dr. Dave Jett. 4. Repeat the labs in the morning. Discussed the plan of care with family at bedside. I appreciate Dr. Jett consult. We will repeat the labs and x-ray in the morning. cc: William Santiago MD [facility]
--- NOTE | 2018-10-08 17:52 | CONSULTATION ---
DATE OF CONSULTATION: 10/08/2018 REQUESTING PHYSICIAN: Dr. Santiago. REASON FOR CONSULTATION: Recurrent bowel obstruction. 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 She has had a trial palliative chemotherapy at [place], but has no improvement. She has been into the hospital at least twice now for emesis. She was in 2 weeks ago. There was some concern about potentially having to take her to the operating room but she improved. Now she is back with the same symptoms and worsening picture. PAST MEDICAL HISTORY: 1. Metastatic inflammatory carcinoma of the breast. 2. Recurrent effusions. 3. Squamous cell cancer of the skin. 4. Anemia. PAST SURGICAL HISTORY: Includes percutaneous drainage of abscess, total abdominal hysterectomy, bilateral salpingo-oophorectomy, bilateral total knee replacement. FAMILY HISTORY: Positive for breast cancer. SOCIAL HISTORY: Lives in [place]. ALLERGIES: Morphine. HOME MEDICATIONS: Reviewed. REVIEW OF SYSTEMS: A full 10 systems obtained, negative as specified in HPI. PHYSICAL EXAMINATION: Vital Signs: The patient is currently afebrile. Her vital signs are stable. General: No acute distress but appears chronically, ill female,E looks stated age. HEENT: Normocephalic, atraumatic. Pupils equal, round, reactive to light. Mucous membranes moist. Oropharynx benign. Neck: Supple trachea midline. Cardiovascular: Regular rate and rhythm. Lungs: Grossly clear. Abdomen: Slightly distended but soft. No peritoneal signs. Extremities: Moves all extremities. Neurologic: Grossly intact. Skin: No signs of jaundice. Vascular: All extremities perfused. LABORATORY DATA: White blood count 7, hematocrit 38, platelet count 257,000. Remainder of labs reviewed. Of note, albumin is 3.5. IMAGING: A 62-year-old correction CT scan independently reviewed and radiology report reviewed. ASSESSMENT ND PLAN: 62-year-old with recurrent bowel obstruction likely related to metastatic disease. Recurrent small bowel obstruction. At this time, she has made no clinical improvement. Has actually gotten slightly worse. Given the quick turnaround and return visit for bowel obstruction, I think she probably needs an operation. The risks, benefits, and alternatives were discussed. We will plan on doing this in the morning. The and the were present while I was discussing it and Dr. Santiago was present. cc: MD William Lipscomb MD
[2018-10-08] MEDS: CYMBALTA PO SCH (22:56)
[2018-10-09] MEDS: PEPCID IV SCH ×2 (00:57→13:49)
[2018-10-09] MEDS: NS 1,000 ML IV SCH ×2 (02:29→18:58)
[2018-10-09 07:21] LABS: AGAP 16; ALB/GLOB RATIO 1.2; ALBUMIN 3.6 g/dL (3.5-5.0); ALKALINE PHOSPHATASE 111 U/L (32-104); BUN 7 mg/dL (8-22); CALCIUM 8.6 mg/dL (8.8-10.2); CHLORIDE 98 mmol/L (98-107); COSMO 270; CREATININE 0.7 mg/dL (0.5-0.9); ESTIMATED GFR > 60; GLUCOSE 66 mg/dL (70-104); GOT 36 U/L (10-30); GPT 19 U/L (10-36); POTASSIUM 3.5 mmol/L (3.5-5.1); SODIUM 137 mmol/L (136-145); TCO2 23 mmol/L (25-35); TOTAL BILIRUBIN 0.36 mg/dL (0.20-1.00); TOTAL PROTEIN 6.7 g/dL (6.3-8.3)
[2018-10-09] MEDS ORDERED: MEFOXIN 2 GM/NS 2 GM/50 ML IVPB IV ONE (07:30)
[2018-10-09] MEDS ORDERED: NORCURON ONE (07:55)
[2018-10-09] MEDS ORDERED: DIPRIVAN 1% ONE (07:55)
[2018-10-09] MEDS ORDERED: XYLOCAINE-MPF 2% ONE (07:55)
[2018-10-09] MEDS ORDERED: VERSED ONE (07:55)
[2018-10-09] MEDS ORDERED: QUELICIN (DOSE) ONE (07:55)
[2018-10-09] MEDS ORDERED: SODIUM CHLORIDE 0.9% 10 ML ONE (07:55)
[2018-10-09] MEDS ORDERED: FENTANYL ONE (07:56)
[2018-10-09] MEDS ORDERED: NAROPIN 0.5% ONE (08:32)
[2018-10-09] MEDS ORDERED: EXPAREL 1.3% ONE (08:33)
[2018-10-09] MEDS ORDERED: OFIRMEV 1000 MG/ISOTONIC SOLN 1,000 MG/100 ML BOTTLE ONE (09:02)
[2018-10-09] MEDS ORDERED: DECADRON ONE (09:05)
[2018-10-09] MEDS ORDERED: ZOFRAN ONE (09:05)
[2018-10-09] MEDS ORDERED: ROBINUL ONE (09:24)
[2018-10-09] MEDS ORDERED: NEOSTIGMINE ONE (09:24)
[2018-10-09] MEDS: DILAUDID ONE ×4 (10:05→10:31)
--- NOTE | 2018-10-09 10:24 | OPERATIVE NOTE ---
PROCEDURE DATE: 10/09/2018 PREOPERATIVE DIAGNOSES: 1. Recurrent small-bowel obstruction secondary to right lower quadrant pelvic mass. 2. Metastatic inflammatory breast cancer. POSTOPERATIVE DIAGNOSES: 1. Recurrent small-bowel obstruction secondary to right lower quadrant pelvic mass. 2. Metastatic inflammatory breast cancer. PROCEDURE: Exploratory laparotomy with open diverting loop ileostomy. SURGEON: Dave Neely MOTOR BUILDER WINDER: None. ANESTHESIA: General endotracheal. FINDINGS: Pelvic mass with adhesions of the cecum, terminal ileum and sigmoid colon stuck down to the pelvis in the area where the iliac vessels are and the ureter. COMPLICATIONS: None at time of dictation. ESTIMATED BLOOD LOSS: 50 mL. SPECIMENS REMOVED: None. BRIEF HISTORY: 62-year-old female who has been in the hospital for recurrent bowel obstructions. There was some concern that she might have had a perforated appendicitis and had a drain in [place]. She had come into the hospital several times with bowel obstruction secondary to this pelvic mass and it was causing a 2nd bowel obstruction. She was not improving and their was a short interval between her 2 admissions. It was felt that this was going to be a continuous problem and needed to be addressed. The risks, benefits, alternatives for the procedure were discussed. All questions answered. DESCRIPTION OF PROCEDURE: After informed consent was obtained, the patient brought to the operative theatre, transferred up placed supine position general endotracheal anesthesia was then performed without complication. A formal time-out was then performed confirming patient, date and procedure. All were in agreement. At that time attention was turned to the abdomen. It should be noted the anesthesia gave her a TAP block. We prepped and draped the abdomen in a sterile fashion. After the time-out we made a standard midline incision to enter into the abdomen. Upon entering we found severely dilated bowel. We ran it from the ligament of Treitz to the ileocecal valve. The ligament of Treitz was normal. There were no intermesenteric masses. When we came down to the ileocecal valve the tongue of omentum was stuck down on top of this area and the cecum. We had to dissect it off. The cecum was wrapped around and had wrapped the terminal ileum around the turned it posteriorly. I could not find the actual terminal ileum. The sigmoid colon had also stuck to this area. These were all stuck down to the lateral wall down the pelvis in the area where the iliac vessels were and the ureter are located. I tried to see if I could even get blunt dissection around, but I could not. I felt this was all going to injure too many structures in the process of relieving this obstruction and felt that given her overall clinical condition with her metastatic inflammatory breast cancer, the best thing would be to palliate her with a loop ileostomy. Again, I tried several ways to try to see if we could get around this but could not. We then found the area of the left upper back is all terminal ileum away from the ileocecal valve that was mobile and able to the abdominal wall. We found an area on the skin in the right lower quadrant that was on the lateral border of the rectus sheath. We made an incision here, carried all the way down to the fascia, incised the fascia and bluntly pushed through the muscle. We were able to incise the posterior fascia to bring up a loop ileostomy. We made sure it was oriented correct way. We had to make it slightly larger given the inflamed dilated bowel but we brought it out. We then irrigated out the abdomen, then closed the fascia with a running loop PDS, started at either side and stapled skin. We then matured the ileostomy with interrupted Vicryl in the typical Kimberly fashion. We were able to digitize both ends. It was patent. We placed an ostomy appliance and a sterile dressing. The patient tolerated the procedure well transferred back down to the recovery room in stable condition. cc: MD William Lipscomb MD
[2018-10-09] MEDS: PHENERGAN ONE ×2 (10:38→10:48)
--- NOTE | 2018-10-09 17:25 | PROGRESS NOTE ---
DATE: 10/09/2018 SUBJECTIVE: I appreciated Dr. Jett's consult. The patient had a diversion ileostomy done. NG tube is not draining. She appears to be pale. I discussed with Dr. Jett. She has some inflammatory matted mass, unable to do any biopsy on the pelvic wall. The etiology was not clear. PHYSICAL EXAMINATION: Vital signs: Temperature is 97 degrees, blood pressure is 150/70 Pulse 84. Slightly pale. NG was given. Chest: Chest has bilateral air entry. Decreased breath sounds on the right side. Heart: Sounds are regular. Abdomen: Belly is soft. Had a colostomy placed. [place] was seen. ASSESSMENT AND PLAN: 1. Exploratory laparotomy with open diversion loop ileostomy. 2. Right-sided pelvic mass etiology was not clear. Labs were normal. 3. Discontinue the nasogastric tube. Repeat the labs in the morning. 4. Metastatic breast cancer, stable and discussed the plan of care the with family at bedside. Continue on gastrointestinal and deep vein thrombosis prophylaxis as per order sheet. Also, we will check the x-ray in the morning. LEVEL OF DOCUMENTATION: 25 minutes. cc: William Santiago MD [facility]
[2018-10-09] MEDS: LOVENOX SUBQ SCH (18:58)
[2018-10-09] MEDS ORDERED: ZOFRAN IV PRN (20:11)
[2018-10-09] MEDS: DILAUDID IV PRN (20:28)
[2018-10-09] MEDS: CYMBALTA PO SCH (20:28)
[2018-10-09] MEDS: PERIDEX MT SCH (20:28)
[2018-10-10] MEDS: DILAUDID IV PRN ×6 (01:12→18:57)
[2018-10-10] MEDS: SODIUM CHLORIDE 0.9% INJ SCH ×2 (01:13→13:15)
[2018-10-10] MEDS: PEPCID IV SCH ×2 (01:13→13:07)
[2018-10-10 06:48] LABS: BASO# 0.01 X1000 (0.0-0.2); BASO% 0.3 % (0.0-0.8); EOS# 0.04 X1000 (0.0-0.7); EOS% 1.1 % (0.0-10.0); HEMATOCRIT 37.2 % (37.0-47.0); HEMOGLOBIN 11.8 g/dL (12.0-16.0); LYMPH# 0.96 X1000 (1.2-3.4); MCH 28.9 PG (27-31); MCHC 31.7 g/dL (33-37); MCV 91.2 FL (81-99); MPV 9.3 FL (7.4-10.4); NEUT# 2.05 X1000 (1.4-6.5); NEUT% 57.6 % (42.2-75.2); PLT 274 X1000 (130-400); RBC 4.08 XMIL (4.2-5.4); RDW 15.5 % (11.5-14.5); WBC 3.56 X1000 (4.8-10.8)
--- NOTE | 2018-10-10 07:00 | GENERAL SURGERY PROGRESS NOTE ---
DATE: 10/09/2018 SUBJECTIVE: Patient seems to be doing a little bit better. OBJECTIVE: Vital Signs: Patient is currently afebrile. Her vital signs are stable. General: No acute distress. HEENT: Normocephalic, atraumatic. Pupils equal, round, reactive to light. Mucous membranes moist. Oropharynx benign. Neck: Supple. Trachea midline. Cardiovascular: Regular rate and rhythm. Lungs: Grossly clear. Abdomen: Soft, nontender, but some distention. Extremities: Moves all extremities. Neurologic: Grossly intact. Skin: No signs of jaundice. Vascular: All extremities perfused. LABORATORY: None this morning as of yet. ASSESSMENT AND PLAN: A 62-year-old female with metastatic breast cancer, now with recurrent bowel obstruction. Recurrent bowel obstruction. Given this, we will still plan on surgical intervention today. Discussed with her the risks, benefits, and alternatives yesterday. We will plan on doing it this morning. -1 cc: MD William Lipscomb MD
[2018-10-10 07:12] LABS: AGAP 18; ALB/GLOB RATIO 1.1; ALBUMIN 3.2 g/dL (3.5-5.0); ALKALINE PHOSPHATASE 94 U/L (32-104); BUN 6 mg/dL (8-22); CALCIUM 8.7 mg/dL (8.8-10.2); CHLORIDE 100 mmol/L (98-107); COSMO 268; CREATININE 0.7 mg/dL (0.5-0.9); ESTIMATED GFR > 60; GLUCOSE 78 mg/dL (70-104); GOT 32 U/L (10-30); GPT 17 U/L (10-36); POTASSIUM 3.8 mmol/L (3.5-5.1); SODIUM 136 mmol/L (136-145); TCO2 18 mmol/L (25-35); TOTAL BILIRUBIN 0.26 mg/dL (0.20-1.00); TOTAL PROTEIN 6.1 g/dL (6.3-8.3)
--- NOTE | 2018-10-10 07:25 | GENERAL SURGERY PROGRESS NOTE ---
DATE: 10/10/2018 SUBJECTIVE: The patient seems to be doing okay after the surgery. She is having some abdominal pain, which sounds appropriate. Her ostomy has some serosanguineous output and some air in the appliance. OBJECTIVE: Vital Signs: The patient is currently afebrile. Her vital signs are stable. General: No acute distress. female. Looks stated age. Cardiovascular: Regular rate and rhythm. Lungs: Grossly clear. Abdomen: Soft, appropriately tender. Ostomy appears viable, somewhat edematous right now. Serosanguineous fluid in the appliance with air in the appliance. ASSESSMENT AND PLAN: A 62-year-old female, postoperative day #1 from exploratory laparotomy and diverting loop ileostomy. Postoperative state. At this time, will continue supportive care. Had her nasogastric tube removed. She has had some mild nausea, but she does want to try some sips of clears. Will put her on clear liquids. I told her that if she starts getting sick to her stomach, to stop and let the nurses know. We have her on pain medicine. We have her on Zofran. She is on Lovenox. Will make sure she has sequential compression devices on, and the patient will mobilize. She does have a bar across her ileostomy, which we will take off on postoperative day #5. cc: MD William Lipscomb MD
[2018-10-10] MEDS: NS 1,000 ML IV SCH ×3 (07:41→20:20)
--- NOTE | 2018-10-10 09:04 | Diag Imaging Result Doc PS360 ---
EXAM: ABDOMEN FLAT/UPRIGHT HISTORY: pain TECHNIQUE: Flat and upright, two views COMPARISON: 09/25/2018 FINDINGS: There are multiple midline skin ros and there is an ostomy in the right lower quadrant. Mild air distended loops of bowel in the mid left abdomen. No organomegaly. Mild scoliosis with degenerative spine changes. IMPRESSION: There is likely a postoperative ileus. Electronically signed by Rik Colon 10/10/2018 9:02 AM
[2018-10-10] MEDS: PERIDEX MT SCH ×2 (10:15→20:19)
[2018-10-10] MEDS: LOVENOX SUBQ SCH (13:07)
[2018-10-10] MEDS ORDERED: SODIUM CHLORIDE 0.9% 10 ML ONE (13:23)
[2018-10-10] MEDS: ZOFRAN IV PRN (19:15)
[2018-10-10] MEDS: CYMBALTA PO SCH (20:19)
[2018-10-11] MEDS: SODIUM CHLORIDE 0.9% INJ SCH (01:40)
[2018-10-11] MEDS: PEPCID IV SCH ×2 (01:41→12:36)
[2018-10-11] MEDS: ZOFRAN IV PRN ×2 (05:43→21:15)
[2018-10-11] MEDS: DILAUDID IV PRN ×2 (05:43→15:12)
[2018-10-11] MEDS: NS 1,000 ML IV SCH ×3 (06:40→17:31)
[2018-10-11] MEDS: PERIDEX MT SCH ×2 (09:40→21:16)
[2018-10-11] MEDS: LOVENOX SUBQ SCH (12:36)
[2018-10-11] MEDS: RESTORIL PO PRN (21:16)
[2018-10-11] MEDS: CYMBALTA PO SCH ×2 (21:18)
[2018-10-12] MEDS: PEPCID IV SCH ×2 (00:28→13:13)
[2018-10-12] MEDS: NS 1,000 ML IV SCH ×4 (00:29→18:19)
[2018-10-12] MEDS ORDERED: MIRALAX PO SCH (09:00)
[2018-10-12] MEDS: PERIDEX MT SCH ×2 (09:11→21:19)
[2018-10-12] MEDS: SODIUM CHLORIDE 0.9% INJ SCH (13:13)
[2018-10-12] MEDS: LOVENOX SUBQ SCH (13:13)
--- NOTE | 2018-10-12 16:54 | PROGRESS NOTE ---
DATE: 10/10/2018 SUBJECTIVE: The patient has had some nausea that developed after receiving some pain medication this evening and also she had taken in broth a couple of times today. She is postop day #1 status post diverting loop colostomy due to right pelvic mass. Abdominal x-ray early this morning reveals postop ileus. She has had a lot of air output via her colostomy. OBJECTIVE: Vital signs: Afebrile. Pulse 84, respirations 14, blood pressure 121/70. CV: RRR without murmur. Lungs: Decreased breath sounds right lung field. Fairly clear on the left. Extremities: No calf tenderness, cords, or edema. Neurologic: Nonfocal. LABORATORY: White count is 3.56, hemoglobin 11.8, platelets 274,000. CMP is acceptable. AST is mildly elevated at 32, creatinine 0.7, potassium 3.8, albumin 3.2. ASSESSMENT: 1. Postoperative day #1 status post diverting loop colostomy due to pelvic mass, right side. 2. Metastatic breast cancer. PLAN: Continue treatment as per Dr. Jett. Will continue to follow along with her care. cc: MD William Bond MD
[2018-10-12] MEDS: ZOFRAN IV PRN (18:41)
[2018-10-12] MEDS: RESTORIL PO PRN (21:20)
[2018-10-12] MEDS: CYMBALTA PO SCH (21:20)
--- NOTE | 2018-10-12 21:40 | PROGRESS NOTE ---
DATE: 10/12/2018 SUBJECTIVE: The patient denies pain. Has tolerated some food so for early this morning when I saw her. OBJECTIVE: Vital signs: Afebrile. Vital signs stable. Cardiovascular: Regular rate and rhythm. Lungs: Fairly clear. Decreased breath sounds in the right lung base noted. Distant breath sounds. Extremities: No calf tenderness, cords or edema. Neurologic: Nonfocal. ASSESSMENT: 1. Postoperative day #3 diverting colostomy placement due to right lower quadrant mass, thought related to prior ruptured appendix or metastatic breast cancer disease in the area. 2. Metastatic breast cancer. PLAN: Continue present treatment for now as per Dr. Jett. We will continue to follow up. We will restart her chemo when deemed appropriate per Dr. Davila. He has told me that we can wait a few days and likely will restart it next week. cc: MD William Bond MD
[2018-10-13] MEDS: PEPCID IV SCH ×2 (01:48→13:48)
[2018-10-13] MEDS: SODIUM CHLORIDE 0.9% INJ SCH ×2 (01:48→13:49)
[2018-10-13] MEDS: NS 1,000 ML IV SCH (01:48)
[2018-10-13] MEDS: PERIDEX MT SCH ×2 (08:19→20:24)
--- NOTE | 2018-10-13 11:40 | GENERAL SURGERY PROGRESS NOTE ---
DATE: 10/13/2018 SUBJECTIVE: Patient doing well. She is mobilizing. She tolerating regular food. OBJECTIVE: Vital Signs: Patient is currently afebrile. Her vital signs stable. General: No acute distress. Cardiovascular: Regular rate and rhythm. Lungs: Grossly clear. Abdomen: Soft, appropriately tender. Ostomy ileostomy is functioning, appears viable. ASSESSMENT/PLAN: A 62-year-old female, currently postoperative day #4 from diverting loop colostomy. Postoperative state. At this time, we will wait another day and remove her T-bar across her ostomy. We will get her De [place] Vega catheter out. She seems to be doing well overall. Hopefully, she can be discharged tomorrow. cc: MD William Lipscomb MD
[2018-10-13] MEDS: LOVENOX SUBQ SCH (13:49)
--- NOTE | 2018-10-13 15:55 | GENERAL SURGERY PROGRESS NOTE ---
DATE: 10/11/2018 SUBJECTIVE: The patient seems to be doing well. She is having ostomy output. OBJECTIVE: Vital signs: The patient is currently afebrile. Her vital signs are stable. General exam: No acute distress. Cardiovascular: Regular rate and rhythm. Lungs: Grossly clear. Abdomen: Soft, appropriately tender, ostomy viable with succus in the appliance with air. ASSESSMENT AND PLAN: A 62-year-old currently postoperative day number 2 from diverting loop colostomy. Postoperative state at this time. She seems to be doing okay. We will advance her to a full liquid diet. Will continue to monitor her. cc: MD William Lipscomb MD
[2018-10-13] MEDS ORDERED: NORCO-7.5 PO PRN (19:21)
[2018-10-13] MEDS ORDERED: SALINE LOCK IV FLUID XX ONE (19:21)
[2018-10-13] MEDS ORDERED: ZOFRAN ODT PO PRN (19:22)
[2018-10-13] MEDS: CYMBALTA PO SCH (20:24)
[2018-10-13] MEDS: RESTORIL PO PRN (20:24)
[2018-10-13] MEDS: PEPCID PO SCH (20:24)
--- NOTE | 2018-10-13 20:51 | PROGRESS NOTE ---
DATE: 10/13/2018 SUBJECTIVE: Patient overall doing well. She is eating some but not overdoing it, she says. She is drinking some liquids. The colostomy is functioning. OBJECTIVE: Afebrile. Vital signs stable. CV: RRR. No murmur. Lungs fairly clear. Distant breath sounds at the bases, right greater than left.Extremities: No calf tenderness, cords or edema. Neurologic: Cranial nerves 2-12 are intact. Nonfocal. ASSESSMENT: 1. Postoperative day #4, status post diverting colostomy placement due to right lower quadrant mass. 2. Metastatic breast cancer. PLAN: Her IV may be infiltrating, so we are going to make her medications oral and leave off IV fluids. Likely she is going home tomorrow as per Dr. Jett's recommendation. We will restart her chemotherapy early next week per Dr. Davila's recommendation. cc: MD William Bond MD
[2018-10-14 07:50] VITALS: BP 124/90
[2018-10-14] MEDS: PEPCID PO SCH (08:35)
[2018-10-14] MEDS: PERIDEX MT SCH (08:36)
--- NOTE | 2018-10-14 09:35 | PROGRESS NOTE ---
DATE: 10/14/2018 SUBJECTIVE: Patient doing well. Dr. Jett has seen her and taken the bar out. She is stooling well via colostomy. OBJECTIVE: Afebrile. Vital signs stable.CV: RRR. Lungs: Mildly diminished breath sounds on the right compared to the left. Good air movement. Extremities: No calf tenderness, cords or edema. Neurologic: Nonfocal. ASSESSMENT: 1. Postoperative day #5 status post diverting colostomy placement due to right lower quadrant mass. 2. Metastatic breast cancer. PLAN: We will discharge the patient home on p.r.n. Restoril and [place] 7.5. She will resume her chemotherapeutic pill as per Dr. Davila in the next 2 to 3 days. Follow up with me in 2 to 3 weeks, and follow up with Dr. Davila and Dr. Jett within the next 3 weeks as well. cc: MD William Bond MD
--- NOTE | 2018-10-14 12:47 | GENERAL SURGERY PROGRESS NOTE ---
DATE: 10/12/2018 SUBJECTIVE: The patient seems to be doing okay, tolerating full liquids. OBJECTIVE: Vital signs: The patient is currently afebrile. Vital signs are stable. Ileostomy is producing a significant amount of fluid. General exam: No acute distress. Cardiovascular: Regular rate and rhythm. Lungs: Grossly clear. Abdomen is soft, appropriately tender. Ileostomy appears viable and functioning. ASSESSMENT AND PLAN: A 62-year-old who is currently postop day #3 from diverting loop colostomy. Postoperative state: At this time the patient seems to be doing okay. We will advance to a regular diet. We will need to see what her ileostomy output is doing. If it is still remaining high I may need to consider Imodium, but given her bowel obstruction this may just be residual stuff from her bowel obstruction. We will remove her bar on day 5. cc: MD William Lipscomb MD
--- NOTE | 2018-10-14 13:33 | GENERAL SURGERY PROGRESS NOTE ---
DATE: 10/14/2018 SUBJECTIVE: The patient seems to be doing well. She is still having significant output of her ileostomy. We were able to remove the bar across the ileostomy without difficulty. I think it is probably okay for her to go home. We will just need to monitor her output. cc: MD William Lipscomb MD
== END 2018-10-14 10:59 | disposition home or self-care (01) | DRG 330 ==
LOC: ED 05:50 → 4N 05:51
PROVIDERS: ADMIT Internal Medicine; ATTEND Family Medicine
CPT/HCPCS: 71010; 71045; 74019; 74020; 74177; 80053; 81001; 83605; 83690; 85025; 85610; 85730; 87088; 94761; 94799; 96374; 96375; 96376; 99285; A9270; C9290; J0131; J0330; J0694; J1100; J1170; J1650; J2250; J2405; J2550; J2795; J3010; J7030; Q9967; S0028